=== PATIENT | female | born 1995 | race Two or more races ===

== ENCOUNTER 2020-07-10 08:28 | Emergency (ER) | payer OTHER ==
[~2020-07-10] VITALS: Ht 142.2 cm; Wt 63.6 kg
[2020-07-10 09:55] VITALS: BP 115/72
== END 2020-07-10 10:05 | disposition home or self-care (01) ==
LOC: EMS 08:43
DX: Z11.1 Encounter for screening for respiratory tuberculosis (principal)
CPT/HCPCS: 99283; 71045-TC